=== PATIENT | male | born 1990 | race African-American/Black ===

== ENCOUNTER 2019-12-16 22:03 | Emergency (ER) | payer SELFPAY ==
[2019-12-16] MEDS ORDERED: Sulfameth/Trimethoprim DS 800-160mg TAB ONE (23:10)
[2019-12-16] MEDS ORDERED: Cephalexin 250 MG CAP ONE (23:10)
== END 2019-12-16 23:22 | disposition home or self-care (01) ==
LOC: ERS 22:03
DX: N48.22 Cellulitis of corpus cavernosum and penis (principal); F17.210 Nicotine dependence, cigarettes, uncomplicated
CPT/HCPCS: 99283

== ENCOUNTER 2021-09-23 14:23 | Emergency (ER) | payer SELFPAY ==
[2021-09-23] MEDS ORDERED: Ibuprofen 800 MG TAB ONE (15:05)
[2021-09-23] MEDS ORDERED: Acetaminophen 500 MG TAB ONE ×2 (15:06)
[2021-09-23] MEDS ORDERED: Dexameth. Sod Phosp. 10 MG/ML (CHEMO USE ONLY) ONE (15:07)
== END 2021-09-23 16:20 | disposition home or self-care (01) ==
LOC: ERS 14:23
DX: J03.90 Acute tonsillitis, unspecified (principal)
CPT/HCPCS: 99283; J1100